=== PATIENT | female | born 1975 | race African-American/Black ===

== ENCOUNTER 2019-01-03 06:17 | Emergency (ER) | payer BC ==
[~2019-01-03] VITALS: Ht 157.5 cm; Wt 124.7 kg
--- OUTSIDE RECORDS SUMMARY | 2019-01-03 06:18 | XMS REPORT | Clinical Summary ---
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 Active ondansetron (ZOFRAN) 4 MG Take 1 tablet 10 tablet 0 tablet (4 mg total) 7 by mouth every 6 (six) hours as needed for nausea or vomiting for up to 10 doses. Active Problems Not on file Social History Date Tobacco Use Types Packs/Day Years Used Never Smoker Tobacco Cessation: Counseling Given: No Drinks/Week oz/Week Comments Alcohol Use occasional Yes Sex Assigned at Date Recorded Not on file Industry Job Start Date Occupation Not on file Not on file Not on file Travel End Travel History Travel Start No recent travel history available. Last Filed Vital Signs Not on file Plan of Treatment Health Maintenance Due Date Last Done Comments CERVICAL CANCER SCREENING 07/07/1995 INFLUENZA VACCINE 11/24/2018 Results Not on fileafter 01/02/2018 Insurance Type Payer Benefit Subscriber ID Effective Phone Address Plan / Dates Group [employer] [facility] xxxxxxxxx 2015-P IZZY/ONDINA lara [facility] Advance Directives For more information, please contact: [phone] Patient Big Data Solutions Architect Explanation Type Date Recorded Advance Directives, Living Will and Medical Power of Claims Sorter
[2019-01-03] MEDS ORDERED: ASPIRIN 81 MG CHEW TAB PO STA (06:34)
[2019-01-03] MEDS ORDERED: DIPHENHYDRAMINE HCL INJ 50 MG/ML VIAL IV STA (06:34)
[2019-01-03] MEDS ORDERED: DIPHENHYDRAMINE HCL INJ 50 MG/ML VIAL ONE (06:50)
[2019-01-03] MEDS ORDERED: ASPIRIN 81 MG CHEW TAB ONE (06:50)
--- NOTE | 2019-01-03 08:09 | Diagnostic Imaging Report ---
EXAMINATION: CXR 2 VIEW - HOPD INDICATION: Rash, chest pain COMPARISON: None FINDINGS: PA and lateral views TUBES and LINES: None. LUNGS: Lungs are well inflated. Lungs are clear. There is no evidence of pneumonia or pulmonary edema. PLEURA: No pleural effusion or pneumothorax. HEART AND MEDIASTINUM: The cardiomediastinal silhouette is unremarkable. BONES AND SOFT TISSUES: No acute osseous lesion. Soft tissues are unremarkable. UPPER ABDOMEN: No free air under the diaphragm. IMPRESSION: No acute thoracic abnormality. Signed by: Pancho North DO on 01/03/2019 8:06 AM
[2019-01-03 08:21] VITALS: BP 111/72
[2019-01-03] MEDS ORDERED: FAMOTIDINE 20 MG/2 ML VIAL IV STA (08:26)
[2019-01-03] MEDS ORDERED: DEXAMETHASONE SOD PHOS 10 MG/1 ML VIAL ONE (08:30)
[2019-01-03] MEDS ORDERED: DEXAMETHASONE SOD PHOS 10 MG/1 ML VIAL IV ONE (08:30)
[2019-01-03] MEDS ORDERED: FAMOTIDINE 20 MG/2 ML VIAL IV ONE (08:31)
[2019-01-03] MEDS ORDERED: PREDNISONE20 MG PO (08:40)
[2019-01-03] MEDS ORDERED: RANITIDINE HCL300 MG PO (08:42)
== END 2019-01-03 08:57 | disposition home or self-care (01) ==
LOC: FSED 06:17
DX: R21 Rash and other nonspecific skin eruption (principal); R07.89 Other chest pain
CPT/HCPCS: 71046; 80048; 80053; 80076; 81003; 81025; 82553; 83518; 84484; 85025; 93005; 99284; J1100; J1200

== ENCOUNTER 2022-06-24 21:24 | Emergency (ER) | payer BC, OTHER ==
[~2022-06-24] VITALS: Ht 157.5 cm; Wt 129.3 kg
[~2022-06-24 21:24] MED LIST: PREDNISONE20 MG PO; RANITIDINE HCL300 MG PO
[2022-06-24] MEDS ORDERED: MEDROL4 MG PO (22:20)
[2022-06-24] MEDS ORDERED: OLOPATADINE HCL5 ML OS (22:22)
[2022-06-24 22:35] VITALS: BP 129/84
== END 2022-06-24 22:36 | disposition home or self-care (01) ==
LOC: FSED 21:36
DX: H02.845 Edema of left lower eyelid (principal); T78.40XA Allergy, unspecified, initial encounter; I10 Essential (primary) hypertension; E11.9 Type 2 diabetes mellitus without complications
CPT/HCPCS: 36415; 82948; 99283

== ENCOUNTER 2024-03-17 20:15 | Emergency (ER) | payer OTHER ==
[~2024-03-17] VITALS: Ht 157.5 cm; Wt 123.8 kg
[~2024-03-17 20:15] MED LIST changes: +CYCLOBENZAPRINE5 MG PO; +MEDROL4 MG PO; +MELOXICAM7.5 MG PO; +OLOPATADINE HCL5 ML OS
[2024-03-17 20:44] VITALS: PULSE 84; RESP 18; TEMP 98; O2SAT 100
[2024-03-17] MEDS ORDERED: AMOX TR-K CLV1 EAC2 PO (22:20)
[2024-03-17] MEDS: DEXAMETHASONE SOD PHOS INJ 4 MG/ML SDV IM ONE (22:45)
== END 2024-03-17 22:44 | disposition home or self-care (01) ==
LOC: FSED 20:17
DX: R09.81 Nasal congestion (principal); J01.90 Acute sinusitis, unspecified; I10 Essential (primary) hypertension; E11.9 Type 2 diabetes mellitus without complications; E78.5 Hyperlipidemia, unspecified; J45.909 Unspecified asthma, uncomplicated; K21.9 Gastro-esophageal reflux disease without esophagitis; Z11.52 Encounter for screening for COVID-19
CPT/HCPCS: 0223U; 87400; 99283; J1100